=== PATIENT | female | born 1940 | race Caucasian/White ===

== ENCOUNTER 2023-12-15 11:44 | Emergency (ER) | payer MEDICARE, OTHER, SELFPAY ==
[2023-12-15 11:49] VITALS: BP 172/92
[2023-12-15 12:11] LABS: % Eosinophils 0.1 % (0-6); % Immature Granulocytes 0.1 % (0-0.5); % Lymphocytes 23.8 % (20.5-51.1); % Monocytes 7.7 % (1.7-9.3); % Neutrophils 67.3 % (42.2-75.2); Absolute Basophils 0.1 10^3/uL (0-0.2); Absolute Lymphocytes 1.6 10^3/uL (1.2-3.4); Absolute Monocytes 0.5 10^3/uL (0.1-0.6); Absolute Neutrophils 4.6 10^3/uL (1.4-6.5); Hematocrit 39.1 % (37.0-47.0); Hemoglobin 13.2 g/dL (12.0-16.0); Mean Corp Hgb Conc. 33.8 g/dL (33.0-37.0); Mean Corpuscular Hgb 27.4 pg (27.0-31.0); Mean Corpuscular Volume 81.3 fL (81.0-99.0); Mean Platelet Volume 8.5 fL (7.4-10.4); Nucleated Red Blood Cells % 0 %; Platelet Count 261 10^3/uL (130-400); Red Blood Cell Count 4.81 10^6/uL (4.20-5.40); White Blood Cell Count 6.9 10^3/uL (4.8-10.8)
[2023-12-15 12:25] LABS: ALT (SGPT) 12 U/L (0-35); AST (SGOT) 27 U/L (14-36); Albumin 4.3 g/dl (3.5-5.0); Alkaline Phosphatase 103 U/L (38-126); Blood Urea Nitrogen 23 mg/dl (7-17); Calcium 9.8 mg/dl (8.4-10.2); Carbon Dioxide 27 mmol/L (22-30); Chloride 106 mmol/L (98-107); Glucose 96 mg/dl (70-99); Potassium 4.6 mmol/L (3.5-5.1); Sodium 137 mmol/L (135-145); Total Bilirubin 0.4 mg/dl (0.2-1.3); Total Protein 6.6 g/dl (6.3-8.2); eGFR > 60.00
--- NOTE | 2023-12-15 12:28 | ED.GENMED ---
History of Present Illness
General
Chief Complaint: Abnormal Lab Value
Source: patient and family
Time Seen by Provider: 12/15/23 12:10
Travel History
Have you had any contact with someone who has COVID-19?: No
Do you have any symptoms of coronavirus? Fever > 100 degrees, chills, cough, shortness of breath, sore throat, loss of taste or smell, muscle aches, or headache?: No
History of Present Illness
History of Present Illness:
Note patient is primarily Stateless speaking, request daughter serve as senior software quality engineer who is bedside. Patient is an 83-year-old female who had outpatient labs drawn yesterday, reportedly told that sodium is 104 and should proceed to the emergency
department. Patient is completely asymptomatic. She denies dizziness, urinary frequency, fever, chills, nausea, vomiting, chest pain, shortness of breath, confusion, or other complaints.
Past History
Past History
ED Past Medical History: HTN and Other (Prolapsed bladder and uterus)
ED Past Surgical History: Appendectomy
Social History
Tobacco: Non-smoker
Alcohol: None
Drug: None
Living: with family
Phy Exam
Physical Exam
Physical Exam:
GENERAL: Alert , in no apparent distress
EYE: pupils equal and reactive
NECK: Supple, no significant adenopathy.
ENT: o/p clr, mmm.
CARDIAC: Regular rate and rhythm .
LUNGS: Clear breath sounds bilaterally, no acute respiratory distress, no wheezes/rales/rhonchi
ABDOMEN: Soft, without focal tenderness, no r/g, no cvat
NEUROLOGICAL: Alert and oriented, no focal neuro deficits
SKIN: Warm and dry, skin intact.
MUSCULOSKELETAL: No edema, well perfused.
PSYCH: Normal and appropriate interaction.
Course
Orders/Labs/Results
Orders:
Orders
12/15/23 12:04
Complete Blood Count/With Diff Urgent
Comprehensive Metabolic Panel Urgent
Abnormal Lab Results
12/15/23
12:04
BUN 23 H mg/dl
(04-06)
12/15/23 12:04
12/15/23 12:04
Vital Signs
Initial and Last Documented VS:
Initial Vital Signs
Temp Pulse Resp BP Pulse Ox
97.8 F 70 17 172/ 95
12/15/23 11:49 12/15/23 11:49 12/15/23 11:49 12/15/23 11:49 12/15/23 11:49
Last Documented Vital Signs
Temp Pulse Resp BP Pulse Ox
97.8 F 70 17 172/92 95
12/15/23 11:49 12/15/23 11:49 12/15/23 11:49 12/15/23 11:49 12/15/23 11:49
*Critical Care Note
Total Time (30-74mins, 75-104mins- exclusive of procedures): Not Applicable
Update Note
Update Note:
Patient presents to the Emergency Department with reported hyponatremia
Number and Complexity of Problems Addressed at the Encounter
� Chronic conditions affecting care:
� Acute Exacerbation and/or Progression of Chronic Illness:
� Differential Diagnosis includes: But not limited to lab error, dilutional hyponatremia, medication side effect, etc.
Amount and/or Complexity of Data to be Reviewed and Analyzed
� I performed an independent evaluation of and my interpretation is:
EKG:
CT:
Xrays:
Laboratory Studies: Unremarkable! In specific, sodium noted to be 137.
Other:
� Review of other/old records reveals: Daughter handed me lab report from [facility] laboratory, collected yesterday, with a sodium level of 104.
� Clinical information was obtained by an independent historian:
� Prescriptions/Medications Considered but not given:
� Further testing considered but not performed:
Risk of Complications and/or Morbidity or Mortality of Patient Management
� Social determinants of health affecting care:
� Discussion with other providers (PCP, Hospitalists, Consultants, etc):
� Escalation of care including admission/observation vs risk of discharge considered: Patient is asymptomatic. Daughter and patient reassured of normal levels here, importance of follow-up and reasons to return to the ER.
ED Attending Note
-
Portions of this chart may have been created with voice recognition software.� Occasional wrong word or��sound alike� substitutions may have occurred due to the inherent limitations of voice recognition software.
Discharge Plan
Departure
Patient Disposition: Home (Routine Discharge)
Date of Disposition: 12/15/23
Time of Disposition: 12:31
Patient with high blood pressure during this ER visit?: Yes
Condition: Good
Discharge Problem:
LAB ERROR (OUTPATIENT)
Instructions: BLOOD PRESSURE
Prescriptions:
No Action
docusate sodium 100 mg Capsule
100 mg PO BID Qty: 60 0RF
oxycodone 5 mg Tablet
5 mg PO Q4HPRN PRN (Reason: severe pain when tolerating PO) Qty: 5 0RF
metoprolol succinate 100 mg tablet extended release 24 hr
100 mg PO DAILY
aspirin 81 mg tablet,delayed release (DR/EC)
81 mg PO DAILY
valsartan 320 mg tablet
320 mg PO DAILY
nifedipine 60 mg tablet extended release
60 mg PO DAILY
Activity Restrictions/Additional Instructions:
PLEASE SEE ATTACHED LABS. YOUR LEVELS HERE ARE NORMAL. YOU FEEL WELL. PLEASE FOLLOW UP WITH YOUR DOCTOR PROMPTLY REGARDING THE SUSPECTED ERROR IN THE LAB RESULTS FROM THE OUTPATIENT LAB. IF YOU DEVELOP DIZZINESS, FEVER, CHEST PAIN, TROUBLE
BREATHING, OR OTHER WORRISOME SIGNS, GO TO THE ER IMMEDIATELY!
== END 2023-12-15 12:50 | disposition home or self-care (01) ==
LOC: EMR 11:44
PROVIDERS: EMERGENCY PHYSICIAN Emergency Medicine; FAMILY PHYSICIAN Nurse Practitioner Family
DX: R79.9 Abnormal finding of blood chemistry, unspecified (principal); I10 Essential (primary) hypertension
CPT/HCPCS: 99283; 80053; 85025